=== PATIENT | female | born 1990 | race African-American/Black ===

== ENCOUNTER 2018-11-29 15:08 | Emergency (ER) | payer SELFPAY ==
[~2018-11-29] VITALS: Ht 167.6 cm; Wt 75.7 kg
--- NOTE | 2018-11-29 15:12 | NUR ---
PT [id number] S/P SYNCOPE WHILE PLAYING [employer]I-GOLF WITH FRIENDS. PT WAS DIAPHORETIC WHEN EMS ARRIVED, SKIN WARM DRY NOW. SMALL LAC TO INSIDE OF LOWER LIP. A/OX4. DENIES HEAD/NECK/BACK PAIN. IN ER BED 13 ON MONITOR.
--- NOTE | 2018-11-29 15:30 | NUR ---
FOSTER PA AT BEDSIDE FOR EVAL.
--- NOTE | 2018-11-29 15:37 | NUR ---
SNAP SHEARER A T BEDSIDE FOR BLOOD DRAW
[2018-11-29] MEDS: IV NS 0.9% 1,000 ML BAG IV ONE (15:41)
[2018-11-29 15:53] LABS: BASOPHILS # (AUTO) 0.1 /CMM (0.0-0.2); BASOPHILS % (AUTO) 0.8 % (0.0-2.0); EOSINOPHILS % (AUTO) 4.1 % (0.0-6.0); HEMATOCRIT 36 % (33-45); HEMOGLOBIN 11.4 g/dL (11.5-14.8); LYMPHOCYTES # (AUTO) 1.4 /CMM (0.8-4.8); LYMPHOCYTES % (AUTO) 20.5 % (20.0-44.0); MEAN CORPUSCULAR HGB CONC 32 g/dl (31.0-36.0); MEAN CORPUSCULAR VOLUME 77 fL (82-100); MONOCYTES # (AUTO) 0.4 /CMM (0.1-1.30); MONOCYTES % (AUTO) 6.5 % (2.0-12.0); NEUTROPHILS # (AUTO) 4.7 /CMM (1.8-8.9); NEUTROPHILS % (AUTO) 68.1 % (43.0-81.0); PLATELET COUNT (AUTO) 233 /CMM (150-450); RED BLOOD CELL COUNT(AUTO) 4.66 MIL/uL (4.0-5.2); WHITE BLOOD COUNT (AUTO) 6.9 K/uL (4.3-11.0)
[2018-11-29 16:01] LABS: CALCIUM, SERUM 9.3 mg/dL (8.5-10.1); CREATININE 1.1 mg/dL (0.6-1.3); POTASSIUM 3.6 mmol/L (3.5-5.1)
--- NOTE | 2018-11-29 16:35 | NUR ---
SPOKE WITH MAGI CARROLL REGARDING CT; SHE STATES TO CANCEL CT. PT IS READY FOR DC.
[2018-11-29 17:02] VITALS: BP 121/68
--- NOTE | 2018-11-29 17:02 | NUR ---
Patient discharged to home in stable condition. Written and verbal after care instructions given. Patient verbalizes understanding of instruction. IV removed. Catheter intact and site benign. Pressure and 4x4 applied to site. No bleeding noted. AMBULATORY STEADY GAIT
== END 2018-11-29 17:09 | disposition home or self-care (01) ==
LOC: ER 15:11
DX: S02.5XXA Fracture of tooth (traumatic), initial encounter for closed fracture (principal); S01.511A Laceration without foreign body of lip, initial encounter; S80.211A Abrasion, right knee, initial encounter; R55 Syncope and collapse; Z60.2 Problems related to living alone; W19.XXXA Unspecified fall, initial encounter; Y93.89 Activity, other specified; Y92.89 Other specified places as the place of occurrence of the external cause; Y99.8 Other external cause status
CPT/HCPCS: 36415; 80048; 85025; 93005; 96360; 99284; J7030